=== PATIENT | female | born 1995 | race Caucasian/White ===

== ENCOUNTER 2021-03-28 10:10 | Outpatient (REF) | payer MEDICAID, SELFPAY ==
--- NOTE | 2021-03-28 10:15 | EMG_ITS ---
Left median and ulnar motor and sensory studies were performed. Left radial sensory study was performed and paraspinal muscles were tested. IMPRESSION: This study of left upper extremity was unremarkable. MD CARLOS ENRIQUE Khan/KENIA / [id number]
== END 2021-03-28 10:11 | disposition home or self-care (01) ==
LOC: HO.NEURO 10:10
PROVIDERS: Visit Provider Nurse Practitioner Family
DX: M25.532 Pain in left wrist (principal); M79.602 Pain in left arm; M79.642 Pain in left hand
CPT/HCPCS: 95886; 95909

== ENCOUNTER → 2021-07-29 09:50 | Outpatient (BNVA) | payer MEDICAID, SELFPAY | PROVIDERS: PCP General Practice; Referring Provider General Practice; Visit Provider Internal Medicine Cardiovascular Disease | DX: R07.9 Chest pain, unspecified (principal) | CPT/HCPCS: 93005; 99202 ==

== ENCOUNTER → 2021-09-09 09:54 | Outpatient (REF) | payer MEDICAID, SELFPAY ==
--- NOTE | 2021-09-09 09:56 | CA_ITS ---
Acquisition Time: 2021-09-09 10:08:52 Total Exercise Time: 00:05:01 Test Indications: cp Medications: Protocol: DESMOND Max HR: 171 BPM 88% of Pred: 194 BPM Max BP: 150/080 mmHG Max Work Load: 7.0 METS Exercise stress test with exercise 5 min 1 sec of Desmond protocol, achieving 88% MPHR, 7 METs, with mild to mod sob, no chest discomfort, without arrythmia, with normotensive response to exercise, without EKG changes meeting criteria for ischemia. Test reviewed with Dr Meredith. Referred By: Burton Arnold Overread By: ELENA LAY
== END ==
LOC: HO.CARD 09:54
PROVIDERS: PCP General Practice; Visit Provider Internal Medicine Cardiovascular Disease
DX: R07.9 Chest pain, unspecified (principal)
CPT/HCPCS: 93017

== ENCOUNTER → 2021-09-13 12:58 | Outpatient (REF) | payer MEDICAID, SELFPAY ==
--- NOTE | 2021-09-13 13:00 | CA_ITS ---
Transthoracic Echocardiogram Patient (Last, First, Middle): Marissa Allred, Gender: Female Date of : 1995 Age: 25 Procedure Date: 09/13/2021 Procedure Type: Transthoracic Echocardiogram Location: OP Height: 162.56 cm Weight: 127.01 kg BSA: 2.26 m2 Heart Rate: bpm BP: 122 / 74 mmHg Warp Tension Tester: JOE Referring MD: Burton Arnold MD Symptoms: R07.9 - Chest pain, unspecified Study Quality: Fair ECG Rhythm: Sinus Conclusions: - The left ventricular systolic function is normal. The calculated ejection fraction is 57% by biplane method. - No obvious valvular pathology seen on this study. Findings Left Ventricle Normal left ventricular cavity size. There is normal left ventricular wall thickness. The left ventricular systolic function is normal. The calculated ejection fraction is 57% by biplane method. There is no evidence of regional wall motion abnormalities. Diastolic function is normal for age. Right Ventricle Normal right ventricular cavity size and systolic function. Atria Both atria are normal in size. Aortic Valve There is a normal trileaflet aortic valve. There is no aortic valve stenosis. There is no aortic valve regurgitation. Mitral Valve The mitral valve appears normal. There is no mitral valve regurgitation. There is no mitral valve stenosis. Pulmonic Valve The pulmonic valve was not well visualized. There is trace pulmonic valve regurgitation. Tricuspid Valve Normal tricuspid valve structure. There is mild tricuspid valve regurgitation. The pulmonary artery systolic pressure is normal. Great Vessels The aortic annulus, sinuses of valsalva, and asc aorta are normal in size. Venous The inferior vena cava is normal in size and collapses greater than 50% with inspiration. Pericardium/Pleural There is a trivial pericardial effusion. Prior Study Comparison No prior study available for comparison. Recommendations, Care & Conclusions No obvious valvular pathology seen on this study. Measurements 2D Linear Measurements IVSd: 0.83 0.6-0.9/0.6-1.0 cm LVIDd: 4.56 3.9-5.3/4.2-5.9 cm LVIDd Index: 2.02 2.4-3.2/2.2-3.1 cm/m2 LVIDs: 2.65 2.0-3.6 cm LVPWd: 0.82 0.7-1.1 cm LA Diam: 3.10 2.7-3.8/3.0-4.0 cm LAIDs Index: 1.37 1.5-2.3 cm/m2 LV Mass: 150.69 67-162/88-224 g LV Mass Index: 66.68 43-95/49-115 g/m2 LVOT Diam: 2.00 3.0+(-)1.3 cm 2D Systolic Function EF 4C: 52.90 >55% EF 2C: 61.80 >55% EF BiP: 56.90 >55% Mitral Valve MV Pk E: 0.89 MV PK A: 0.64 MV Decel Time: 228.00 E/A: 1.40 E'Lateral: 15.40 E'Medial: 8.38 E/E' Med: 10.60 E/E' Lat: 5.80 PHT: 67.00 MVA PHT: 3.28 Decel Ripley: 3.90 Aortic Valve AoV Pk Luigi: 1.63 AoV Mn Luigi: 1.16 AoV VTI: 0.36 AoV Pk Grad: 11.00 Aov Mn Grad: 6.00 JEWEL Cont.VTI: 2.53 LVOT LVOT Pk Luigi: 1.22 LVOT Mn Luigi: 0.85 LVOT VTI: 0.29 LVOT Pk Grad: 6.00 LVOT Mn Grad: 3.00 LVOT Diam: 2.00 LVOT Area: 3.14 Diastolic Function MV Pk E: 0.89 MV Pk A: 0.64 E/A: 1.40 E'Medial: 8.38 E/E' Med: 10.60 E' Laterial: 15.40 E/E' Lat: 5.80 Right Ventricle TAPSE (mm): 24.40 TVS' Luigi: 12.70 Tricuspid Valve TR Pk Luigi: 2.51 TR Pk Grad: 25.00 RA Press: 3.00 RVSP: 28.00 Great Vessels Aorta Sinus of Valsalva: 2.69 2.0-3.[address] Ridge: 1.93 1.7-3.4 cm Ao Asc: 2.60 2.1-3.4 cm Ao Arch: 2.60 Updated in Other Vendor System with Status of Final Yvon Meredith MD electronically signed on 09/14/2021 1:07:42 PM with status of Final
== END ==
LOC: HO.CARD 12:58
PROVIDERS: PCP General Practice; Visit Provider Internal Medicine Cardiovascular Disease
DX: R07.9 Chest pain, unspecified (principal)
CPT/HCPCS: 93306

== ENCOUNTER → 2021-09-25 13:38 | Outpatient (BNVA) | payer MEDICAID, SELFPAY | PROVIDERS: PCP General Practice; Referring Provider General Practice; Visit Provider Internal Medicine Cardiovascular Disease | DX: R06.02 Shortness of breath (principal); R07.9 Chest pain, unspecified; D64.9 Anemia, unspecified | CPT/HCPCS: 99212 ==